=== PATIENT | female | born 1990 | race Caucasian/White ===

== ENCOUNTER → 2016-12-14 | Outpatient (CLI) | payer OTHER | LOC: FIMAGING 08:28 | PROVIDERS: ATTEND Advanced Practice Midwife | DX: Z34.92 Encounter for supervision of normal pregnancy, unspecified, second trimester (principal); Z3A.19 19 weeks gestation of pregnancy ==

== ENCOUNTER 2017-02-10 17:12 | Observation (INO) | payer OTHER ==
[2017-02-10 17:18] VITALS: TEMP 97.7
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
[2017-02-10] MEDS ORDERED: NS 1,000 ML IV ONE (17:44)
[2017-02-10 18:03] VITALS: BP 122/71; PULSE 80; RESP 14; O2SAT 97
[2017-02-10 18:09] LABS: % IMMATURE GRANULYOCYTES 0.8 % (0.0-1.1); ABSOLUTE IMMATURE GRANULOCYTES 0.08 10^3/uL (0.00-0.10); ADD DIFF? NO; ADD MORPH? NO; ADD SCAN? NO; ATYPICAL LYMPHOCYTE FLAG 0 (0-99); FRAGMENT RBC FLAG 0 (0-99); HEMATOCRIT 35.4 % (38.0-47.0); HEMOGLOBIN 11.9 g/dL (12.6-16.3); LEFT SHIFT FLG 0 (0-99); LIPEMIA HEMOLYSIS FLAG 80 (0-99); MEAN CELL HEMOGLOBIN CONCENTR. 33.6 g/dL (32.4-36.7); MEAN CELL VOLUME 89.2 fL (81.5-99.8); MEAN PLATELET VOLUME 10.1 fL (8.7-11.7); PLATELET CLUMPS FLAG 0 (0-99); PLATELET COUNT 236 10^3/uL (150-400); RED BLOOD CELL COUNT 3.97 10^6/uL (4.18-5.33); RED CELL DISTRIBUTION WIDTH 12.4 % (11.5-15.2)
[2017-02-10 18:19] LABS: ANION GAP 8 mEq/L (8-16); CALCIUM 8.8 mg/dL (8.5-10.4); CARBON DIOXIDE 25 mEq/l (22-31); CHLORIDE 104 mEq/L (97-110); CREATININE 0.4 mg/dL (0.6-1.0); GLOMERULAR FILTRATION RATE > 60; GLUCOSE 56 mg/dL (70-100); POTASSIUM 3.4 mEq/L (3.5-5.2); SODIUM 137 mEq/L (134-144)
[2017-02-10 18:58] LABS: INR 1.03 (0.83-1.16); PROTIME(PATIENT) 13.4 SEC (12.0-15.0)
== END 2017-02-10 22:30 | disposition home or self-care (01) ==
LOC: FLD 18:34
PROVIDERS: ADMIT Obstetrics & Gynecology; ATTEND Obstetrics & Gynecology
DX: O9A.213 Injury, poisoning and certain other consequences of external causes complicating pregnancy, third trimester (principal); V43.52XA Car driver injured in collision with other type car in traffic accident, initial encounter; Z3A.27 27 weeks gestation of pregnancy
CPT/HCPCS: G0378 ×2

== ENCOUNTER 2018-07-11 10:57 | Day surgery (SDC) | payer OTHER ==
[2018-07-11] MEDS ORDERED: LIDOCAINE 1% 2 ML INJ ID PRN (11:23)
[2018-07-11] MEDS ORDERED: LR 1,000 ML IV ONE ×2 (11:23→11:55)
[2018-07-11] MEDS ORDERED: LIDOCAINE 1% 300 MG/30 ML SDV ONE (11:30)
[2018-07-11] MEDS ORDERED: ROPIVACAINE HCL 150 MG/30 ML INJ ONE (11:30)
[2018-07-11] MEDS ORDERED: BACITRACIN 50,000 UNITS/10 ML SYR IRR ONE (11:31)
[2018-07-11] MEDS ORDERED: ceFAZolin 2 GM/DEXTROSE 100 ML IV ONE (11:54)
[2018-07-11] MEDS ORDERED: MIDAZOLAM 2 MG/2 ML VIAL IVP ONE (12:06)
--- NOTE | 2018-07-11 12:06 | PDANEPAE ---
ANE History of Present Illness Right foot 3rd toe mass excision ANE Past Medical History - Cardiovascular History Hx Hypertension: No Hx Arrhythmias: No Hx Chest Pain: No Hx Coronary Artery / Peripheral Vascular Disease: No Hx CHF / Valvular Disease: No Hx Palpitations: No - Pulmonary History Hx COPD: No Hx Asthma/Reactive Airway Disease: Yes Hx Recent Upper Respiratory Infection: No Hx Oxygen in Use at Home: No Hx Sleep Apnea: No Sleep Apnea Screening Result - Last Documented: Negative Pulmonary History Comment: asthma as a child but has gone away as an adult - Neurologic History Hx Cerebrovascular Accident: No Hx Seizures: No Hx Dementia: No - Endocrine History Hx Diabetes: No Hypothyroid: No Hyperthyroid: No Obesity: no - Renal History Hx Renal Disorders: No - Liver History Hx Hepatic Disorders: No - Neurological & Psychiatric Hx Hx Neurological and Psychiatric Disorders: Yes Neurological / Psychiatric History Comment: depression, anxiety - Cancer History Hx Cancer: No - Congenital Disorder History Hx Congenital Disorders: No - GI History Hx Gastrointestinal Disorders: No - Other Health History Other Health History: 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 pt eats special raw "clean" diet - feels will be more sensitive to anesthesia and medications - Chronic Pain History Chronic Pain: No - Surgical History Prior Surgeries: hand surgery as a child. tonsillectomy. wrist surgery 2016. breast implants 2010 ANE Review of Systems Review of Systems: - Exercise capacity METS (RN): 4 METS ANE Patient History - Allergies Allergies/Adverse Reactions: No Known Allergies Allergy (Verified 06/30/18 11:02) - Home Medications Home medications: home medication list seen and reviewed Home Medications: NK [No Known Home Meds] 02/10/17 [Last Taken Unknown] - NPO status NPO Status: no food or drink >8 hours - Anes Hx Anes Hx: no prior problems, post operative nausea - Smoking Hx Smoking Status: Never smoked - Family Anes Hx Family Hx Anesthesia Complications: none ANE Labs/Vital Signs - Vital Signs Height: 162 cm Weight: 48.081 kg ANE Physical Exam - Airway Neck exam: FROM Mallampati Score: Class 1 - Pulmonary Pulmonary: no respiratory distress - Cardiovascular Cardiovascular: regular rate and rhythym - ASA Status ASA Status: I ANE Anesthesia Plan Anesthesia Plan: MAC
[2018-07-11] MEDS ORDERED: MIDAZOLAM 2 MG/2 ML VIAL ONE (12:12)
--- NOTE | 2018-07-11 12:23 | PDHPUP ---
History & Physical Update H&P update statement: This history and physical update is based on an assessment of the patient which was completed after admission or registration (within 24 hours), but prior to the surgery/procedure. H&P update: H&P reviewed & patient examined (no changes in health), no change in patient's condition since H&P completed
[2018-07-11] MEDS ORDERED: PROPOFOL/EMULSION 500 MG/50 ML BOTTLE IV ONE (12:27)
[2018-07-11] MEDS ORDERED: fentaNYL 100 MCG/2 ML INJ ONE (12:39)
[2018-07-11] MEDS ORDERED: NALOXONE HCL 0.4 MG/ML INJ IVP PRN (13:50)
[2018-07-11] MEDS ORDERED: oxyCODONE IR 5 MG TAB PO PRN (13:50)
[2018-07-11] MEDS ORDERED: HYDROCODONE/APAP 5/325 TAB PO PRN (13:50)
[2018-07-11] MEDS ORDERED: fentaNYL 100 MCG/2 ML INJ IVP PRN (13:50)
[2018-07-11] MEDS ORDERED: ONDANSETRON 4 MG/2 ML VIAL IVP PRN (13:50)
--- NOTE | 2018-07-11 13:52 | POSTANESTH ---
Post Anesthetic Evaluation Cardiovascular Status: Normal, Stable Respiratory Status: Normal, Stable Level of Consciousness/Mental Status: Can Participate in Eval Pain Control: Adequate, Prn Tx Ordered Nausea/Vomiting Control: Adequate, Prn Tx Ordered Complications Possibly Related to Anesthesia: None Noted
--- NOTE | 2018-07-11 14:00 | POSTOPPROG ---
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 Spoke with Dr. Cai in pathology who evaluated the bone prior to closure to ensure no malignancy warranted resection of the entire distal phalanx. He reported findings on his evaluation appeared benign to the bone.
[2018-07-11 15:04] VITALS: BP 97/58
[2018-07-11] MEDS ORDERED: HYDROCODONE/APAP 5/325 TAB ONE (15:39)
--- NOTE | 2018-07-11 16:47 | GOP ---
DATE OF OPERATION: 07/11/2018 SURGEON: Majo Austin DPM ANESTHESIA: IV sedation with local. ANESTHESIOLOGIST: Eufemia Eli MD PREOPERATIVE DIAGNOSIS: bone tumor tip distal phalanx of uncertain nature, 3rd digit, right foot. POSTOPERATIVE DIAGNOSIS: bone tumor tip distal phalanx, 3rd digit, right foot. PROCEDURE PERFORMED: Excision of bone tumor, distal phalanx, 3rd digit, right foot. FINDINGS: DESCRIPTION OF PROCEDURE: Patient presented to the hospital approximately an hour and half prior to foot surgery after having been n.p.o. past midnight. Patient's preoperative history was reviewed and there are no contraindications to the proposed procedure. The patient was given cefazolin 2 g IV 1/2 hour prior to foot surgery. Patient was taken to the OR room and placed in the OR table in a supine position where the appropriate anesthetic agents were administered. This was supplemented with a local block to the right forefoot to the base of the 3rd metatarsal region utilizing a total of 7 cc of 0.5% ropivacaine with 3 cc of 1% lidocaine plain. The right lower extremity was then prepped and draped in usual aseptic fashion and covered with a sterile stockinette. A sterile pneumatic ankle tourniquet was applied and padded well underneath with Webril. Utilizing elevation overlying Esmarch bandage, the foot was exsanguinated and the tourniquet was inflated to a pressure of 220 mmHg. The foot was then lowered to the orthopedic table. Attention was then directed to the dorsal distal aspect of the 3rd digit where first, a complete nail avulsion procedure was performed so as to expose the distal phalanx in the area of the pathology. A skin incision was made to the level of bone encompassing the nail matrix and the skin dorsal to the tip of the distal phalanx. This soft tissue was excised and the distal phalanx was inspected. The tip of the distal phalanx was hypertrophic and irregular. The tip of the distal phalanx encompassing the irregularity was excised and placed on the back table and sent to Pathology for immediate exam. The area of the bone resection from the distal tip of the distal phalanx was inspected and bone color and density was normal. The surgical site was copiously irrigated with sterile saline, bacitracin solution. There is no abnormality to the surrounding soft tissues. The distal skin flap was then remodeled and cut and placed over the distal phalanx at the tip for closure. Dr. Cai from Pathology called and reported that the bone resected appeared to have benign findings and there are no signs at this time for any malignancy features. The skin was then primarily closed with 4-0 Prolene utilizing interrupted horizontal mattress sutures and some simple sutures. The tourniquet was released prior to full closure and there was immediate capillary refill to all digits and hemostasis. A mildly compressive dry sterile gauze dressing was applied with Xeroform, 4 x 4 gauze, and Bryce. Patient tolerated the procedure well and was transferred to recovery room with vital signs stable and vascular status intact to the right lower extremity. In the recovery room, the patient received postoperative oral and written home care instructions. Orders were written for the patient to receive a postoperative shoe and she can weight bear as tolerated. She is also to receive a CryoCuff to use as instructed. The bone fragment excised will be further evaluated in the pathology department. The patient is scheduled for first postoperative visit in 3 days. Please call the office earlier if any questions or problems should arise. /[id number]/MODL MTDD
== END 2018-07-11 15:45 | disposition home or self-care (01) ==
LOC: FSGY 10:57
PROVIDERS: ATTEND Podiatrist
PROC: 0QBQ0ZZ Excision of Right Toe Phalanx, Open Approach (ICD-10-PCS; principal; 2018-07-11 12:15)
DX: D16.31 Benign neoplasm of short bones of right lower limb (principal); B07.0 Plantar wart
CPT/HCPCS: J0690; J2250; J2704; J2795; J3010

== ENCOUNTER → 2019-01-01 | Outpatient (CLI) | payer OTHER | LOC: FIMAGING 08:04 | PROVIDERS: ATTEND Family Medicine | DX: N64.4 Mastodynia (principal); R59.0 Localized enlarged lymph nodes; Z98.82 Breast implant status | CPT/HCPCS: 77047 ==